=== PATIENT | female | born 1985 | race African-American/Black ===

== ENCOUNTER 2019-10-16 23:05 | Inpatient (IN) | payer OTHER ==
[~2019-10-16] VITALS: Ht 170.2 cm; Wt 109.8 kg
[2019-10-16] MEDS ORDERED: PRENATAL + DHA1 EAC1 (23:26)
--- NOTE | 2019-10-16 23:33 | NUR ---
OB DE 12 SEMANAS CON SANGRADO VAGINAL PROFUSO. PTE REFIERE QUE RENDON MEDICO ES DEL MUNINCIPAL. REFIERE FUE ATENDIDA STEPHENIE PUMA Y LE DIERON DE VERONIQUE CON DESCANSO EN CAMA MIRIAN NO LE EXPLICARON TRESSA. REFIERE QUE HOY COMENZO A SANGRAR PROFUSAMENTE Y PRESENTA DOLOR PELVICO Y DE ESPALDA BAJA. SE COLOCA EN OBSERVACION Y SE PRESENTA A MEDICO EN TURNO.
--- NOTE | 2019-10-17 01:07 | NUR ---
PACIENTE ALERTA Y ORIENTADA X3. MANEJADA POR MIS. YOUNGBLOOD QUIEN ORIENTA A PACIENTE SOBRE TX Y PROCEDIMIENTO A REALIZAR Y REFIERE ENTENDER. REALIZA MUESTRAS DE LABORATORIO BAJO MEDIDAS ASEPTICAS. CANALIZACION PATENTE Y REID DE EDEMA Y ERITEMA. PENDIENTE SONOGRAMA TRASNVAGINAL YA NOTIFICADO A LA SONOGRAFISTA. LE REALIZA MUESTRAS DE TUBOS PILOTOS PARA REQUIZAR 2 UNIDADES DE PRBC EN HOLD.
--- NOTE | 2019-10-17 01:29 | NUR ---
SE YESSI TUBOS PILOTOS Y SE LLAMA A BANCO DE GLADIS PARA REQUISAR MUESTRAS. SE HABLA CON MIS DENNIS.
--- NOTE | 2019-10-17 06:40 | NUR ---
SE LLAMA A BANCO DE GLADIS PARA ACTIVAR UNIDADES DE PRBCS 3
--- NOTE | 2019-10-17 06:41 | NUR ---
SE LLAMA A BANCO DE GLADIS PARA ACTIVAR UNIDADES DE PRBCS EN HOLD 2 ORDENADAS. SE NOTIFICA A [facility]
--- NOTE | 2019-10-17 08:10 | NUR ---
PACIENTE ALERTA Y ORIENTADA SE OBSERVA CON IVF PATENT ELIBRE DEDEMA , PACIENTE EN CONSULTA CON EL ,PACIENTE PENDIENTE A TRANSFUNDIR 2 UNIDADES PRBC ROBERT[place] PRONTO ESTEN DISPONIBLES . SE MANTIEIEN OBSERVACION PO RCMABIOS EN RENDON CONDICION.
[2019-10-19] MEDS ORDERED: MORGIDOX100 MG PO (09:10)
[2019-10-19] MEDS ORDERED: NAPR500T14 PO (09:11)
== END 2019-10-19 15:41 | disposition home or self-care (01) | DRG 770 ==
LOC: ER 23:05 → SEC-K 10-17 08:44 → OB/GYN 10-17 08:44
PROVIDERS: ADMIT Obstetrics & Gynecology
PROC: BU46ZZZ Ultrasonography of Uterus (ICD-10-PCS; 2019-10-17)
PROC: 30233N1 Transfusion of Nonautologous Red Blood Cells into Peripheral Vein, Percutaneous Approach (ICD-10-PCS; 2019-10-17)
PROC: BY49ZZZ Ultrasonography of First Trimester, Single Fetus (ICD-10-PCS; 2019-10-18)
PROC: 3E033VJ Introduction of Other Hormone into Peripheral Vein, Percutaneous Approach (ICD-10-PCS; 2019-10-18)
PROC: 10D17ZZ Extraction of Products of Conception, Retained, Via Natural or Artificial Opening (ICD-10-PCS; principal; 2019-10-18 19:45)
DX: O03.4 Incomplete spontaneous abortion without complication (principal); O26.851 Spotting complicating pregnancy, first trimester; O36.80X1 Pregnancy with inconclusive fetal viability, fetus 1; D50.0 Iron deficiency anemia secondary to blood loss (chronic)

== ENCOUNTER 2020-05-21 21:23 | Emergency (ER) | payer OTHER ==
[~2020-05-21] VITALS: Ht 170.2 cm; Wt 115.7 kg
[~2020-05-21 21:23] MED LIST: MORGIDOX100 MG PO; NAPR500T14 PO; PRENATAL + DHA1 EAC1
== END 2020-05-22 00:47 | disposition home or self-care (01) ==
LOC: ER 21:23
DX: O20.8 Other hemorrhage in early pregnancy (principal)

== ENCOUNTER 2023-01-09 09:23 | Inpatient (IN) | payer OTHER ==
[~2023-01-09] VITALS: Ht 170.2 cm; Wt 116.6 kg
[2023-01-12] MEDS ORDERED: PRENATAL TABLE1 EAC1 PO (06:45)
[2023-01-12] MEDS ORDERED: INTEGRA PLUS C1 EACH PO (06:46)
[2023-01-12] MEDS ORDERED: ADULT LOW DOSE81 M1 PO (06:46)
== END 2023-01-14 13:51 | disposition home or self-care (01) | DRG 785 ==
LOC: OB/GYN 01-12 04:36 → O/R 01-12 04:36 → OB/GYN 01-12 11:00
PROVIDERS: ADMIT Specialist; ATTEND Specialist
PROC: 0UB70ZZ Excision of Bilateral Fallopian Tubes, Open Approach (ICD-10-PCS; 2023-01-12)
PROC: 4A1HXCZ Monitoring of Products of Conception, Cardiac Rate, External Approach (ICD-10-PCS; 2023-01-12)
PROC: 10D00Z1 Extraction of Products of Conception, Low, Open Approach (ICD-10-PCS; principal; 2023-01-12 11:00)
DX: O34.211 Maternal care for low transverse scar from previous cesarean delivery (principal); Z3A.38 38 weeks gestation of pregnancy; Z37.0 Single live birth; Z30.2 Encounter for sterilization